=== PATIENT | female | born 1955 | race Caucasian/White ===

== ENCOUNTER 2019-08-16 23:02 | Inpatient (IN) | payer OTHER, MEDICAID ==
[~2019-08-16] VITALS: Ht 152.4 cm; Wt 74.8 kg
--- NOTE | 2019-08-16 03:30 | NUR ---
INITIAL NOTES AND SHANKAR CATHETER INSERTION Patient is resting, no signs of acute respiratory distress, Seizure precautions in place, call light within reach, bed alarm on, bed at lowest position. Will continue to monitor. Addendum: 08/17/19 at 0902 by Chelsea Carmen RN wrong time, please disregard
[2019-08-16 23:05] VITALS: BP_SYST 127
--- NOTE | 2019-08-16 23:21 | NUR ---
Placed in room 3 . Placed on cardiac monitor technician, blood pressure machine and pulse oximeter. To gown for exam. Side rails up. Report given to ARNULFO ELES.
--- NOTE | 2019-08-16 23:46 | NUR ---
ER Dr. Farr at bedside examining patient.
--- NOTE | 2019-08-16 23:50 | NUR ---
Patient was BIB BLS from [facility] for evaluation of increasd confusion and generalized weakness. Pt is AAO x 1. Pt was able to respond with "yes." No other injuries/complaints per patient or noted.
[2019-08-16] MEDS: D5NS 1,000 ML IV SCH (23:58)
[2019-08-17] VITALS (7 sets, daily range): BP systolic 109–148
[2019-08-17] MEDS ORDERED: ONDANSETRON HCL 4 MG/2 ML VIAL IVP PRN
[2019-08-17] MEDS ORDERED: MILK OF MAGNESIA 30 ML UDC PO PRN
[2019-08-17] MEDS ORDERED: IPRATROPIUM/ALBUTEROL SULFATE 3 ML AMPUL.NEB (DUONEB) INH PRN
[2019-08-17] MEDS ORDERED: ACETAMINOPHEN 325 MG TABLET PO PRN
[2019-08-17] MEDS ORDERED: ZOLPIDEM TARTRATE 5 MG TABLET PO PRN
[2019-08-17 00:36] LABS: BASOPHILS % (AUTO) 0.3 % (0.0-2.0); HEMATOCRIT 41.8 % (36-48); HEMOGLOBIN 14.2 g/dL (12.0-16.0); LYMPHOCYTES # (AUTO) 1.3 K/uL (1.0-5.5); LYMPHOCYTES % (AUTO) 11.9 % (20.5-51.5); MEAN CORPUSCULAR HEMOGLOBIN 33 pg (27-31); MEAN CORPUSCULAR HGB CONC 34 % (32-36); MEAN CORPUSCULAR VOLUME 99 fL (79.0-98.0); MONOCYTES # (AUTO) 0.9 K/uL (0.0-1.0); MONOCYTES % (AUTO) 8.8 % (1.7-9.3); NEUTROPHILS # (AUTO) 8.3 K/uL (1.8-7.7); PLATELET COUNT (AUTO) 295 K/uL (130-430); RED BLOOD CELL COUNT(AUTO) 4.24 MIL/uL (4.2-6.2); RED CELL DISTRIBUTION WIDTH 13.6 % (9.0-15.0); WHITE BLOOD COUNT (AUTO) 10.5 K/uL (4.8-10.8)
[2019-08-17 00:38] LABS: CALCIUM 8.5 mg/dL (8.4-11.0); CREATININE 0.9 mg/dL (0.55-1.30); POTASSIUM 3.8 mmol/L (3.5-5.1)
[2019-08-17 00:39] LABS: ALBUMIN 3.4 g/dL (3.4-4.8); TOTAL BILIRUBIN 0.2 mg/dL (0.0-1.0)
[2019-08-17] MEDS ORDERED: NACL 0.9% 1,000 ML IV ONE (01:00)
--- NOTE | 2019-08-17 01:10 | NUR ---
patient went to CT in stable condition.
--- NOTE | 2019-08-17 01:22 | NUR ---
Patient returned from CT In stable condition.
[2019-08-17 01:26] LABS: BILIRUBIN,URINE NEGATIVE (NEGATIVE); BLOOD, URINE 1+ (NEGATIVE); CLARITY/URINE OTHER (CLEAR); COLOR,URINE YELLOW (YELLOW); GLUCOSE,URINE NEGATIVE (NEGATIVE); KETONES,URINE NEGATIVE (NEGATIVE); LEUKOCYTE ESTERASE ,URINE NEGATIVE (NEGATIVE); NITRITE, URINE POSITIVE (NEGATIVE); PH,URINE 5.5 (5.0-8.0); PROTEIN URINE NEGATIVE (NEGATIVE); UROBILINOGEN,URINE 0.2 (0.2-1.0)
[2019-08-17] MEDS ORDERED: cefTRIAXone 1 GM in D5W 50 ML IV ONE (01:45)
[2019-08-17 01:58] LABS: BACTERIA,URINE MANY /HPF (None Seen)
[2019-08-17] MEDS ORDERED: cefTRIAXone 1 GM VIAL ONE (02:01)
--- NOTE | 2019-08-17 02:10 | NUR ---
# 20 gauge angiocath placed to RAC. Use of asceptic technique. Opsite placed over site. Blood return noted. Flushed with 10 cc of normal saline. No evidence of infiltration noted. Patient tolerated well.
--- NOTE | 2019-08-17 02:16 | NUR ---
MRSA screening done and sent to lab. Pt tolerated well.
--- NOTE | 2019-08-17 02:20 | NUR ---
unable to obtain medication list. Called [facility]alind Bocanegra to fax over medication list.
--- NOTE | 2019-08-17 02:35 | NUR ---
Transfer to [facility]. IV present no sign or symptom of infiltration.
--- NOTE | 2019-08-17 02:35 | NUR ---
Patient will be admitted to care of Dr. Wu. Admitted to Med Surg unit. Will go to room 121 C. Belongings list completed. Complete and up to date summary report printed. SBAR report to be given at bedside with opportunity for questions.
--- NOTE | 2019-08-17 02:44 | NUR ---
ADMISSION: The patient, CORAZON DYKES, 64 y/o, F admitted by SUKHJINDER FRANKS DO, was given written information regarding hospital policies, unit procedures and contact persons. Valuables were checked and pt was informed her nurse will be Chelsea.
[2019-08-17] MEDS ORDERED: LEVO88TA2 PO (02:57)
[2019-08-17] MEDS ORDERED: CARB400T PO (02:57)
[2019-08-17] MEDS ORDERED: RANI-362 PO (02:57)
[2019-08-17] MEDS ORDERED: PHEN100C4 PO (02:57)
[2019-08-17] MEDS ORDERED: POLY17PO4 PO (02:57)
[2019-08-17] MEDS ORDERED: CALC-1263 PO (02:57)
[2019-08-17] MEDS ORDERED: DONE10TA44 PO (02:57)
--- NOTE | 2019-08-17 02:57 | NUR ---
Medication reconciliation completed with information provided by facility. Any prior medication reconciliation on file was reviewed and corrected.
--- NOTE | 2019-08-17 03:06 | NUR ---
INITIAL NOTES AND SHANKAR CATHETER INSERTION Patient is resting, no signs of acute respiratory distress, Seizure precautions in place, call light within reach, bed alarm on, bed at lowest position. Will continue to monitor.
--- NOTE | 2019-08-17 05:17 | NUR ---
Swallow Eval Called Called and left a message for Wendy, regarding swallow eval, ordered by Dr. Wu.
--- NOTE | 2019-08-17 07:30 | NUR ---
CLOSING NOTES Patient is resting, no signs of acute respiratory distress, will catheter placed and draining by gravity, no kinks or loops observed. IVF running, dressings c/d/i. Seizure precautions in place, call light within reach, bed alarm on, bed at lowest position. Will endorse care to oncoming shift.
--- NOTE | 2019-08-17 08:00 | NUR ---
INITIAL NOTES- IN BED, OPEN HER EYES WHEN NAME CALLED. IVF INFUSING WELL. NO ACUTE DISTRESS NOTED. SAFETY PRECAUTION OBSERVED. BED ALARM ON.WILL CONTINUE TO MONITOR
--- NOTE | 2019-08-17 09:08 | NUR ---
CALLED/LEFT A MESSAGE [facility]
--- NOTE | 2019-08-17 10:29 | NUR ---
Nutrition Update Sherif Scale 15 noted. Pt admitted for generalized weakness. Diet: pureed BMI: 32.2 kg/m2 RD to follow per nutrition care standards.
--- NOTE | 2019-08-17 10:50 | NUR ---
ST SWALLOW EVALUATION SWALLOW EVALUATION COMPLETED AT BEDSIDE. CLEARED BY RN RAMESH STRAUSS. PT AWAKE BUT NOT ABLE TO FOLLOW DIRECTIONS OR ANSWER SIMPLE QUESTIONS RELIABLY OR CONSISTENTLY. SHE DID ACCEPT ORAL TRIALS W/O DIFFICULTY. MILD ORAL DYSPHAGIA, PROB FUNCTIONAL PHARYNGEAL SWALLOW. D/W RN. RECOMMEND MECHANICAL SOFT DIET, THIN LIQUIDS WITH SUPERVISION AND ASPIRATION PRECAUTIONS OK TO RESUME PLOF DIET AT FACILITY FURTHER ST NOT INDICATED
[2019-08-17] MEDS: D5NS 1,000 ML IV SCH ×2 (12:06→20:44)
--- NOTE | 2019-08-17 13:26 | NUR ---
Notes- Resting in bed, turn and repositioned. no acute distress noted. IVF infusing well.
--- NOTE | 2019-08-17 15:00 | NUR ---
MD ROUNDS SEEN BY DR. FRANKS AT BEDSIDE.
[2019-08-17] MEDS: PHENYTOIN 100 MG CAPSULE PO SCH ×2 (16:05→20:43)
[2019-08-17] MEDS: CEFEPIME 1 GM in D5W 50 ML IV SCH (16:05)
--- NOTE | 2019-08-17 16:07 | NUR ---
CALLED/LEFT MESSAGE TO [facility].
--- NOTE | 2019-08-17 16:40 | NUR ---
NOTES- IN BED AWAKE, PT JUST SMILES WHEN YOU TRIED TO TALK TO HER. NO SIGNS OF DISTRESS. BED ALARM ON.
--- NOTE | 2019-08-17 18:27 | NUR ---
Notes- awake, resting in bed. No acute distress noted. all needs meet. will endorse
--- NOTE | 2019-08-17 19:45 | NUR ---
OPENING NOTES Received report from morning shift RN. Patient is resting in bed, awake, alert, oriented x1, breathing evenly and nonlabored. Patient has an IV on the left AC 20g, IVF running, no s/s of infiltration or infection on IV site at this time, patient is tolerating it well. Patient has a Garrett catheter secured and draining by gravity. Educated patient on plan of care, call light system, patient did not respond to state understanding and was smiling. Bed is locked, armed, and at lowest position, call light within reach. Fall/safety/aspiration precautions. Will continue to monitor.
--- NOTE | 2019-08-17 20:43 | NUR ---
ROUNDS/MEDICATIONS Patient is resting in bed, awake, breathing evenly and nonlabored. Educated patient on medications, patient did not respond to state understanding but was cooperative with taking medications. Administered medications, patient tolerated them well. No s/s of distress at this time, no other needs at this time. Fall/safety/seizure precautions. Will continue to monitor.
[2019-08-17] MEDS: DONEPEZIL HCL 5 MG TABLET (ARICEPT) PO SCH (20:44)
--- NOTE | 2019-08-17 22:15 | NUR ---
RN ROUNDS Patient awake, in no distress, no facial grimacing noted for pain, due medications administered, crushed and given with applesauce, aspiration precautions maintained, patient repositioned for comfort, fall and safety measures in place, will closely monitor.
--- NOTE | 2019-08-18 00:15 | NUR ---
ROUNDS Patient is resting in bed, eyes closed breathing evenly and nonlabored. No s/s of distress at this time, no other needs at this time. Fall/safety/seizure precautions. Will continue to monitor.
--- NOTE | 2019-08-18 02:15 | NUR ---
ROUNDS Patient is resting in bed, eyes closed breathing evenly and nonlabored. No s/s of distress at this time, no other needs at this time. Fall/safety/seizure precautions.
[2019-08-18] MEDS: CEFEPIME 1 GM in D5W 50 ML IV SCH ×2 (03:58→16:26)
--- NOTE | 2019-08-18 04:00 | NUR ---
MEDICATIONS/ROUNDS Patient is resting in bed, eyes closed, breathing evenly and unlabored. Hygiene care performed. Educated patient on medication, patient did no state understanding but said "ok." Administered medication, patient tolerated it well. No s/s of distress at this time, no other needs at this time. Fall/safety/seizure precautions.
--- NOTE | 2019-08-18 06:26 | NUR ---
CLOSING NOTES Patient is resting in bed, eyes closed, breathing evenly and nonlabored. Will endorse care to morning shift RN. Fall/safety/seizure precautions.
[2019-08-18] MEDS ORDERED: LEVOTHYROXINE SODIUM 0.088 MG TABLET PO SCH (07:00)
[2019-08-18] MEDS ORDERED: RANITIDINE HCL 150 MG PO SCH (07:00)
--- NOTE | 2019-08-18 07:36 | NUR ---
OPENING NOTE Patient resting in the bed with eyes closed. No acute distress. Skin warm and dry to touch. IV intact to RAC, no redness, no swelling, no drainage. On D5 NS at 100ml/hr, infusing well. F/C intact, drain gravity. Safety measure maintained. Call light within reached. Bed locked in low position, padded side rails up, bed alarm on. Will continue to monitor.
[2019-08-18 07:50] VITALS: BP_SYST 130
[2019-08-18 08:06] LABS: FOLATE (FOLIC ACID) 7.2 ng/mL (>3.0)
[2019-08-18 08:42] LABS: BASOPHILS % (AUTO) 0.1 % (0.0-2.0); HEMATOCRIT 39.7 % (36-48); HEMOGLOBIN 13.4 g/dL (12.0-16.0); LYMPHOCYTES % (AUTO) 12.7 % (20.5-51.5); MEAN CORPUSCULAR HEMOGLOBIN 34 pg (27-31); MEAN CORPUSCULAR HGB CONC 34 % (32-36); MEAN CORPUSCULAR VOLUME 99 fL (79.0-98.0); MONOCYTES # (AUTO) 0.8 K/uL (0.0-1.0); MONOCYTES % (AUTO) 10.1 % (1.7-9.3); NEUTROPHILS # (AUTO) 6.1 K/uL (1.8-7.7); NEUTROPHILS % (AUTO) 77.1 % (40.0-70.0); PLATELET COUNT (AUTO) 263 K/uL (130-430); RED BLOOD CELL COUNT(AUTO) 4.01 MIL/uL (4.2-6.2); RED CELL DISTRIBUTION WIDTH 13.9 % (9.0-15.0); WHITE BLOOD COUNT (AUTO) 7.9 K/uL (4.8-10.8)
[2019-08-18 09:22] LABS: ALBUMIN 2.7 g/dL (3.4-4.8); CALCIUM 8.3 mg/dL (8.4-11.0); CREATININE 0.69 mg/dL (0.55-1.30); TOTAL BILIRUBIN 0.3 mg/dL (0.0-1.0)
[2019-08-18] MEDS: PHENYTOIN 100 MG CAPSULE PO SCH ×3 (09:27→21:46)
[2019-08-18] MEDS: FAMOTIDINE 20 MG TABLET PO SCH (09:27)
[2019-08-18] MEDS: POLYETHYLENE GLYCOL 3350, 17 GM/ POWD.PACK PO SCH (09:27)
[2019-08-18] MEDS: CALCIUM CARBONATE/VITAMIN D3 1 TAB TABLET PO SCH (09:27)
--- NOTE | 2019-08-18 09:28 | NUR ---
AM SCHEDULE PO MED GIVEN, TOLERATED WELL.
--- NOTE | 2019-08-18 11:00 | NUR ---
ROUND Patient resting in the bed. No acute distress. IV intact, IVF infusing well. F/C intact, drain gravity. Safety measure maintained. Call light within reached. Bed locked in low position, padded side rails up, bed alarm on. Will continue to monitor.
[2019-08-18] MEDS: D5NS 1,000 ML IV SCH ×2 (12:19→22:00)
--- NOTE | 2019-08-18 12:20 | NUR ---
LUNCH TAX CLERK feed the patient. Patient sit in upright position, no s/s of aspiration noted. Safety measure maintained. Call light within reched. Continue to monitor.
--- NOTE | 2019-08-18 14:55 | NUR ---
ROUND Patient resting in the bed. No acute distress. IV intact, IVF infusing well. F/C intact, drain gravity. Safety measure maintained. Call light within reached. Bed locked in low position, padded side rails up, bed alarm on. Continue to monitor.
[2019-08-18 16:22] VITALS: BP_SYST 131
--- NOTE | 2019-08-18 18:57 | NUR ---
CLOSING NOTE Patient resting in the bed with eyes closed. No acute distress. Skin warm and dry to touch. IV intact to RAC, no redness, no swelling, no drainage. On D5 NS at 100ml/hr, infusing well. F/C intact, drain gravity. All needs met. No seizure activity noted. Safety measure maintained. Call light within reached. Bed locked in low position, padded side rails up, bed alarm on. Will endorse to night nurse.
--- NOTE | 2019-08-18 19:50 | NUR ---
OPENING NOTES Received report from morning shift RN. Patient is resting in bed, awake, alert, oriented x1, breathing evenly and nonlabored. Patient has an IV on the left AC 20g, IVF running, no s/s of infiltration or infection on IV site at this time, patient is tolerating it well. Patient has a Garrett catheter secured and draining by gravity. Educated patient on plan of care, call light system, patient unable to state understanding due to cognitive limitations. Bed is locked, armed, and at lowest position, call light within reach. Fall/safety/aspiration/seizure precautions. Will continue to monitor.
[2019-08-18 19:55] VITALS: BP_SYST 140
[2019-08-18] MEDS: DONEPEZIL HCL 5 MG TABLET (ARICEPT) PO SCH (21:46)
--- NOTE | 2019-08-18 21:46 | NUR ---
MEDICATIONS/ROUNDS Patient is resting in bed, awake, breathing evenly and unlabored. Vital signs stable. Educated patient on medications, patient could not state understanding due to cognitive limitations. Administered medications, patient tolerated them well. No s/s of distress at this time, no other needs at this time. Fall/safety/seizure/aspiration precautions.
--- NOTE | 2019-08-18 22:00 | NUR ---
ROUNDS Patient is resting in bed, awake, breathing evenly and unlabored. Replaced IV fluids, patient is tolerating it well. No s/s of distress at this time, no other needs at this time. Fall/safety/seizure/aspiration precautions. Addendum: 08/19/19 at 0100 by Jere Barfield RN TRANSFER CARE TO ANOTHER RN Report given to another RN that would take over patient care.
--- NOTE | 2019-08-18 22:48 | NUR ---
REPORT RECIEVED FROM ANOTHER RN FOR CONTINUED CARE, NOTED THE IV SITE IS INFILTRATED AND IVF OFF TILL THE IV CANNULA IN REINSERTED, SHANKAR CATHETER IS NOTED LEAKING .WILL CONTINUE TO MONITOR,
[2019-08-19 00:07] VITALS: BP_SYST 127
--- NOTE | 2019-08-19 01:37 | NUR ---
IN CANNULA REIMSERTION BEING DONE, NURSING HEALTH AID AT BEDSIDE.
[2019-08-19] MEDS: D5NS 1,000 ML IV SCH ×3 (01:58→23:49)
[2019-08-19] MEDS: CEFEPIME 1 GM in D5W 50 ML IV SCH ×2 (04:43→15:39)
[2019-08-19] MEDS: LEVOTHYROXINE SODIUM 0.1 MG TABLET PO SCH (07:09)
--- NOTE | 2019-08-19 07:37 | NUR ---
OPENING NOTE Patient resting in the bed with eyes closed. No acute distress. Skin warm and dry to touch. IV intact to left hand, no redness, no swelling, no drainage. On D5 NS at 100ml/hr, infusing well. F/C intact, drain gravity. Safety measure maintained. Call light within reached. Bed locked in low position, padded side rails up, bed alarm on. Will continue to monitor.
[2019-08-19 07:55] VITALS: BP_SYST 141
[2019-08-19] MEDS: FAMOTIDINE 20 MG TABLET PO SCH (09:25)
[2019-08-19] MEDS: CALCIUM CARBONATE/VITAMIN D3 1 TAB TABLET PO SCH (09:25)
[2019-08-19] MEDS: PHENYTOIN 100 MG CAPSULE PO SCH ×3 (09:26→21:29)
[2019-08-19] MEDS: POLYETHYLENE GLYCOL 3350, 17 GM/ POWD.PACK PO SCH (09:26)
--- NOTE | 2019-08-19 09:38 | NUR ---
SCHEDULE MED GIVEN AM schedule PO med given, tolerated well. No s/s of aspiration. HOB elevated. IV intact, IVF infusing well F/C intact, drain gravity with yellow urine. Safety measure maintained. Bed locked in low position, padded side rails up, bed alarm on. Call light within reached. Continue to monitor.
[2019-08-19 10:06] LABS: FOLATE (FOLIC ACID) 7.7 ng/mL (>3.0)
--- NOTE | 2019-08-19 11:10 | NUR ---
RECEIVED THE CALL FROM PHARMACIST REGARDING THE MEDICATION OF TEGRETOL XR NOT AVAILABLE IN OUR PHARMACY, ONLY AVAILABLE REGULAR, WITH THE RECOMMENDATION OF TEGRETOL 200MG Q6HR. WILL ASK MD WHEN MAKE ROUNDS.
--- NOTE | 2019-08-19 12:30 | NUR ---
ESTHER MACIAS IN THE UNIT Reported to Dr. Wu regarding the medication of Tegretol XR not available in our pharmacy. Per pharmacy recommendation alternate to Tegretol 200mg Q6hr. Dr. Wu agreed that and communicated to pharmacist
[2019-08-19 12:46] VITALS: BP_SYST 134
--- NOTE | 2019-08-19 14:15 | NUR ---
ROUND Patient resting in the bed with eyes closed. No acute distress. IV intact, IVF infusing well. F/C intact, drain gravity. Safety measure maintained. Call light within reached. Bed locked in low position, padded side rails up, bed alarm on. Continue to monitor.
[2019-08-19 16:30] VITALS: BP_SYST 141
--- NOTE | 2019-08-19 18:57 | NUR ---
CLOSING NOTE Patient resting in the bed with eyes closed. No acute distress. Skin warm and dry to touch. IV intact to left hand, no redness, no swelling, no drainage. On D5 NS at 100ml/hr, infusing well. F/C intact, drain gravity. All needs met. No seizure activity noted. Safety measure maintained. Call light within reached. Bed locked in low position, padded side rails up, bed alarm on. Will endorse to night nurse.
[2019-08-19 19:00] VITALS: BP_SYST 136
[2019-08-19] MEDS: DONEPEZIL HCL 5 MG TABLET (ARICEPT) PO SCH (21:29)
--- NOTE | 2019-08-20 00:14 | NUR ---
IV SITE NOTED TO BE SWOLLEN AND INFILTRATED, IV CANNULA DISCONTINUED AMND DRESSING APPLIED.ARM COMPRESS APPLIED TO THE AREA
--- NOTE | 2019-08-20 00:23 | NUR ---
DR FRANKS PAGED THE IV SITE IS SWOLLEN AND INFILTRATED AND THE OTHER TIME HAS TRIED SEVERAL TIMES BEDIRE ABLE TO BETO AN IV. MESSAGE LEFT WITH THE EXCHANGE,AWAITING RESPONSE/
[2019-08-20 01:20] VITALS: BP_SYST 108
[2019-08-20] MEDS: CEFEPIME 1 GM in D5W 50 ML IV SCH (03:57)
[2019-08-20] MEDS: LEVOTHYROXINE SODIUM 0.1 MG TABLET PO SCH (06:24)
[2019-08-20 07:51] LABS: BASOPHILS % (AUTO) 0.1 % (0.0-2.0); HEMATOCRIT 36.5 % (36-48); HEMOGLOBIN 12.3 g/dL (12.0-16.0); LYMPHOCYTES % (AUTO) 9.4 % (20.5-51.5); MEAN CORPUSCULAR HEMOGLOBIN 33 pg (27-31); MEAN CORPUSCULAR HGB CONC 34 % (32-36); MEAN CORPUSCULAR VOLUME 99 fL (79.0-98.0); MONOCYTES % (AUTO) 9.4 % (1.7-9.3); NEUTROPHILS # (AUTO) 8.8 K/uL (1.8-7.7); NEUTROPHILS % (AUTO) 81.1 % (40.0-70.0); PLATELET COUNT (AUTO) 239 K/uL (130-430); RED BLOOD CELL COUNT(AUTO) 3.68 MIL/uL (4.2-6.2); RED CELL DISTRIBUTION WIDTH 13.5 % (9.0-15.0); WHITE BLOOD COUNT (AUTO) 10.8 K/uL (4.8-10.8)
[2019-08-20] MEDS: D5NS 1,000 ML IV SCH (07:58)
[2019-08-20 08:24] LABS: ALBUMIN 2.6 g/dL (3.4-4.8); CALCIUM 8.1 mg/dL (8.4-11.0); CREATININE 0.68 mg/dL (0.55-1.30); TOTAL BILIRUBIN 0.4 mg/dL (0.0-1.0)
[2019-08-20 08:29] LABS: POTASSIUM 4.1 mmol/L (3.5-5.1)
[2019-08-20 10:30] VITALS: BP_SYST 108
[2019-08-20] MEDS: POLYETHYLENE GLYCOL 3350, 17 GM/ POWD.PACK PO SCH (10:38)
[2019-08-20] MEDS: PHENYTOIN 100 MG CAPSULE PO SCH ×2 (10:39→17:39)
[2019-08-20] MEDS: CALCIUM CARBONATE/VITAMIN D3 1 TAB TABLET PO SCH (10:39)
[2019-08-20] MEDS: FAMOTIDINE 20 MG TABLET PO SCH (10:39)
[2019-08-20 12:16] VITALS: BP_SYST 132
--- NOTE | 2019-08-20 13:39 | NUR ---
Discharge Planning Received order for patient to be discharged back to [facility] today, p [phone] f [phone]. Faxed patient information to Rosalind Ramires and phoned Scott to confirm fax received. The DON will review and call back with a room number.
--- NOTE | 2019-08-20 15:41 | NUR ---
Discharge Planning: DCP arranged transportation with [facility] ([phone]) 6:00pm P/U, to [facility] ([phone]) Rm [id number]
[2019-08-20 16:44] VITALS: BP_SYST 130
[2019-08-20 16:53] VITALS: BP_SYST 126
--- NOTE | 2019-08-20 19:00 | NUR ---
report given to Karen at [facility] discharge pickler helper via ambulance crew
[2019-08-20 20:47] VITALS: BP_SYST 120
[2019-08-21] MEDS ORDERED: LEVOFLOXACIN 500 MG TABLET PO SCH (10:00)
--- NOTE | 2019-08-30 14:35 | NUR ---
PHYSICAL THERAPY CO-SIGN The Physical Therapy Progress Notes documented by Automotive Refinish Technician have been reviewed. Reviewed/Co-Signed by: Eliseo To, PT Documentation Done by: ABDOULAYE SOLORIO PTA Addendum: 08/30/19 at 1436 by Eliseo To PT Amended: Links added.
--- NOTE | 2019-08-30 14:35 | NUR ---
PHYSICAL THERAPY CO-SIGN The Physical Therapy Progress Notes documented by Box Nailer have been reviewed. Reviewed/Co-Signed by: Eliseo To, PT Documentation Done by: ABDOULAYE SOLORIO PTA Addendum: 08/30/19 at 1436 by Eliseo To PT Amended: Links added.
== END 2019-08-20 18:56 | DRG 194 ==
LOC: SED 23:02 → SMU 08-17 01:46
PROVIDERS: ADMIT Internal Medicine; ATTEND Internal Medicine
DX: J18.9 Pneumonia, unspecified organism (principal); N39.0 Urinary tract infection, site not specified; J44.0 Chronic obstructive pulmonary disease with (acute) lower respiratory infection; E03.9 Hypothyroidism, unspecified; E78.00 Pure hypercholesterolemia, unspecified; E78.5 Hyperlipidemia, unspecified; F03.90 Unspecified dementia, unspecified severity, without behavioral disturbance, psychotic disturbance, mood disturbance, and anxiety; I10 Essential (primary) hypertension; Z88.1 Allergy status to other antibiotic agents; Z88.5 Allergy status to narcotic agent; Z88.8 Allergy status to other drugs, medicaments and biological substances; Z91.018 Allergy to other foods
CPT/HCPCS: 36415; 70450-TC; 71045; 80053; 81000-TC; 82140-TC; 82607; 82746; 83605; 83735-TC; 83880; 84443-TC; 84484; 85025; 87040-TC; 87081; 87086; 92610-GN; 93005; 96365; 97110-GP; 97112-GP; 97530-GP; 99285; J0692; J0696; J7030; J7042; J7060; J7620